=== PATIENT | female | born 1935 | race Caucasian/White ===

== ENCOUNTER 2018-03-11 01:12 | Inpatient (IN) | payer OTHER, MEDICARE ==
[~2018-03-11] VITALS: Ht 152.4 cm; Wt 54.0 kg
[~2018-03-11 01:12] MED LIST: ASPIRIN81 M4 PO; BYSTOLIC5 M1 PO; LIPITOR20 M2 PO; LISINOPRIL20 M1 PO; MAGNESIUM400 M1 PO; MULTIVITAMINS1 EAC9 PO; NORVASC5 M1 PO; WELLBUTRIN SR150 M1 PO
--- NOTE | 2018-03-11 09:36 | Admission Core Measures ---
Acute Coronary Syndrome (CM) ACS Core Measures Acute Coronary Syndrome Diagnosis No Congestive Heart Failure (NEW) CHF Core Measures Congestive Heart Failure Diagnosis No Cerebrovascular Accident CVA Core Measures CVA/TIA Diagnosis No Venous Thromboembolism VTE Core [place] (View Protocol) VTE Risk Factors Surgery No Mechanical VTE Prophylaxis d/t N/A MechProphylax Ordered No VTE Pharm Prophylaxis d/t NA PharmProphylax ordered Problem List As ranked by this Provider includes Assessment & Plan 1. Unilateral primary osteoarthritis, right knee HOME MEDS Home Med List Amlodipine Besylate (Norvasc) 5 MG TABLET 1 TAB PO DAILY HTN (Reported) Aspirin (Aspirin*) 81 MG TAB.CHEW 1 TAB PO DAILY CARDIAC (Reported) Atorvastatin Calcium (Lipitor) 20 MG TABLET 1 TAB PO DAILY cholesterol ( Reported) Bupropion HCl (Wellbutrin Sr) 150 MG TABLET.ER 1 TAB PO DAILY SMOKING CESSATION (Reported) Lisinopril 20 MG TABLET 1 TAB PO DAILY htn (Reported) Magnesium Oxide (Magnesium) 400 MG CAPSULE 1 CAP PO DAILY SUPPLEMENT ( Reported) Multiple Vitamin (Multivitamins) 1 EACH TABLET 1 TAB PO DAILY SUPPLEMENT ( Reported) Nebivolol HCl (Bystolic) 5 MG TABLET 1 TAB PO DAILY cardiac (Reported)
--- NOTE | 2018-03-11 09:37 | Surg Short-stay <48hrs Dis Sum ---
Visit Information Visit Dates Admission Date: 03/11/18 Discharge Date: 03/13/18 Surgical Short Stay DC Summary Admission Diagnosis: Right knee OA Final Diagnosis: JAKE s/p R TKA Procedure(s): Right total knee arthroplasty Summary/Significant Findings: Patient was admitted to the hospital for an elective right total knee replacement. The procedure was tolerated well and patient was transferred to a general surgical floor. Diet was advanced and tolerated. The patient was evaluated and treated by physical therapy. At the time of hospital discharge, vital signs were stable, neurovascular status was intact and pain was controlled with the use of oral pain medications. Condition at Discharge: Stable Discharge Disposition: home health services Discharge instructions provided to patient/family: Yes Post discharge follow-up plan: [address] Olivo Copies to: Singh Olivo MD
--- NOTE | 2018-03-11 09:40 | Patient Discharge Instructions ---
Discharge Instructions General Discharge Information You were seen/treated for: Right knee osteoarthritis You had these procedures: Right total knee arthroplasty Watch for these problems: Increasing pain despite the use of pain medication Increasing redness, warmth or swelling Drainage of any type from incision Inability to bear weight on operative leg Persistent nausea and vomiting Fever greater than 101.5 degrees Do not soak the wound: Yes Daily wet to dry dressings: No No bath, but you may shower: Yes Other wound care: Please keep wound clean and dry. No ointments or lotions of any type on or near incision at any time. No exceptions. Your dressing will be changed by your nurse on the second day after your surgery. Daily dry dressing changes are recommended each day thereafter. Do not soak your wound in a bath or pool at any time until otherwise indicated by your surgeon. You may shower, please dry wound immediately after shower with a clean towel. Special Instructions: Aspirin: You are taking this medication to help prevent blood clot formation. Please take with food to protect your stomach lining. Please take as directed. Constipation: Pain medication can cause constipation. Your surgeon has recommended that you take Colace and miralax each day. You may discontinue this medication if you develop loose stool or diarrhea. Diet Continue normal diet: Yes Activity Full Activity/No Limits: No Activity Self Limited: Yes Activity Limited to: Weight bear as tolerated (with rolling walker as needed) Acute Coronary Syndrome Inclusion Criteria At DC or during hospital stay patient has or had the following: ACS DIAGNOSIS No Discharge Core Measures Meds if any: Prescribed or Continued at Discharge Meds if any: NOT Prescribed or Continued at Discharge Congestive Heart Failure Inclusion Criteria At DC or during hospital stay patient has or had the following: CHF DIAGNOSIS No Discharge Core Measures Meds if any: Prescribed or Continued at Discharge Meds if any: NOT Prescribed or Continued at Discharge Cerebrovascular accident Inclusion Criteria At DC or during hospital stay patient has or had the following: CVA/TIA Diagnosis No Discharge Core Measures Meds if any: Prescribed or Continued at Discharge Meds if any: NOT Prescribed or Continued at Discharge Venous thromboembolism Inclusion Criteria VTE Diagnosis No VTE Type NONE VTE Confirmed by (Test) NONE Discharge Core Measures - Per Current guidelines, there needs to be overlap - treatment for the first 5 days of Warfarin therapy. - If discharged on Warfarin prior to 5 days of - overlap therapy, the patient will need to be - assessed for post discharge needs including - *Post discharge parental anticoagulation - *Warfarin and/or parental anticoagulation education - *Follow up date to check INR post discharge At least 5 days overlap therapy as Inpatient No Meds if any: Prescribed or Continued at Discharge Note: Overlap Therapy is Warfarin and Anticoagulant Meds if any: NOT Prescribed or Continued at Discharge
[2018-03-11] MEDS ORDERED: DILAUDID2 M1 PO (10:52)
[2018-03-11] MEDS ORDERED: OMEPRAZOLE20 M3 PO (10:52)
[2018-03-11] MEDS ORDERED: COLACE100 M1 PO (10:52)
[2018-03-11] MEDS ORDERED: ASPIRIN EC81 M1 PO (10:52)
[2018-03-11] MEDS ORDERED: MIRALAX17 G1 PO (10:52)
--- NOTE | 2018-03-11 14:36 | Operative Report ---
Operative/Inv Procedure Report Surgery Date: 03/11/18 Name of Procedure: Right total knee replacement Pre-Operative Diagnosis: Primary knee DJD Post-Operative Diagnosis: Same Estimated Blood Loss: 50ml to 100ml Surgeon/Fuse Maker: Geovani VIEYRA,Singh Shrestha Anesthesia: block Operative/Procedure Note Note: Description of Procedure: The patient was taken to the operating room and positively identified. After induction of spinal anesthesia and administration of appropriate pre-operative antibiotics, the patient was positioned supine on the operating room table and all bony prominences were well padded. A well-padded pneumatic tourniquet was placed on the right upper thigh. After performing a surgical timeout, the right lower extremity was prepped and draped in the usual sterile fashion. After exsanguination with Esmarch the tourniquet was inflated to 250mm of mercury. A standard medial parapatellar approach was made to the knee. This was carried down through skin and subcutaneous tissue to the level of the fascia. Meticulous hemostasis was maintained with Bovie electrocautery. The extensor mechanism and patellar retinaculum were opened sharply and the patella was everted. The infrapatellar fat was resected in order to improve exposure. Osteophytes were trimmed from the patella and femoral condyles and the patella was re-everted and tucked laterally. A medial release was performed and the cruciate ligaments were resected. The tibia was then subluxed anteriorly. Utilizing the appropriate extra-medullary guide, the proximal tibia was trimmed perpendicular to the long axis of the tibial shaft. Attention was then turned to the femur. After opening the medullary canal, the distal femoral cut was made in 6 degrees of valgus utilizing the appropriate intra-medullary guide. The extension gap was checked and found to be appropriate. The femur was then sized and the remainder of the femoral cuts were made with a size #2 4-in-1 femoral cutting guide. The flexion gap was checked and found to be symmetric and appropriate. The knee was then trialed with a size #2 CR femoral component, a size #2 tibial component and a size 13 mm CS polyethylene insert. The patella was trimmed to accept an A 29 patella. This yielded excellent range of motion, stability and patellar tracking. All trial components were removed and the knee was copiously irrigated with sterile saline. All components were cemented into place with Nelda Simplex cement. All the components were of the Nelda Triathlon knee system of the above stated sizes. The knee was again irrigated after cementation. The extensor mechanism and patellar retinaculum were repaired using interrupted #1 vicryl suture. The skin was re-approximated with 2-0 vicryl and closed with shane. A sterile dressing was applied, the tourniquet was deflated, the patient was awakened and taken to the recovery room in satisfactory condition.
--- NOTE | 2018-03-11 15:37 | PN- Orthopedic ---
Subjective Subjective: POC feeling well, still in pacu awaiting bed on floor. no n/v, no cp/sob. some rle discomfort, controlled w block. some persistent numbness bl le. due to void postop Objective Vital Signs and I&Os Intake & Output 03/11 1600 03/11 0800 03/11 0000 03/10 1600 03/10 0803/10 0000 Intake Total Output Total Balance Patient 118 lb Weight Physical Exam: gen- nad card-s1s2 rrr pulm- ctab abd- soft nt ext- rle dressed in maru, ice in place. palp pt bl, feet warm. gross sensation intact/equal bl. +dorsi/flexion bl. calves soft nt bl, alps on. Assessment/Plan Assessment/Plan A- POD0 sp R TKR, stable with some postop pain, sp recent orif R hip (january 2018) . P- prn pain meds oob, wbat, pt asa 82 bid dc planning- desires [facility] dc Core Measures Venous Thromboembolism VTE Risk Factors Surgery No Mechanical VTE Prophylaxis d/t N/A MechProphylax Ordered No VTE Pharm Prophylaxis d/t NA PharmProphylax ordered
[2018-03-11 17:19] VITALS: BP 140/60
[2018-03-11 19:15] VITALS: BP 142/60
[2018-03-11 21:30] VITALS: BP 104/58
[2018-03-11 23:03] VITALS: BP 110/60
[2018-03-12 01:56] VITALS: BP 122/68
[2018-03-12 06:29] VITALS: BP 110/58
--- NOTE | 2018-03-12 07:32 | PN- Orthopedic ---
Subjective Subjective: Patient resting comfortably in bed. Head no events overnight. States that she did have some increase knee pain last night requiring IV morphine. She ambulated multiple times yesterday and this morning. She is tolerating a regular diet. Patient says she does have some paresthesias in her right lower extremity but nothing beyond her baseline. Objective Vital Signs and I&Os Vital Signs Date Time Temp Pulse Resp B/P B/P Pulse O2 O2 Flow FiO2 Mean Ox Delivery Rate 03/12 0629 97.8 72 20 110/58 97 03/12 0156 97.8 64 20 122/68 95 03/11 2303 97.8 71 16 110/60 94 Room Air 03/11 2130 97.4 77 20 104/58 96 Room Air 03/11 1915 98.6 78 16 142/60 96 Room Air 03/11 1719 96.0 70 18 140/60 96 Room Air Room Air Intake & Output 03/12 0803/12 0000 03/11 1600 03/11 0803/11 0000 03/10 1600 Intake Total 660 Output Total 750 Balance -90 Intake, IV 300 Intake, Oral 360 Output, Urine 750 Patient 119 lb 118 lb Weight Physical Exam: General- NAD Resperations- clear bialaterlly Cardiac-regular rate and rhythm Abdomen-soft nontender with positive bowel sounds Extremities-dressing is clean and dry, thigh is soft with no erythema, minimal tenderness around incision. Calves are soft bilaterally and non-tenderness. Distal sensory and motor function is intact. Current Medications: Current Medications Sig/Joe Start time Last Medication Dose Route Stop Time Status Admin Acetaminophen 1,000 MG Q6H 03/12 0200 AC 03/12 IV 03/12 1401 0119 Acetaminophen 1,000 MG Q6 03/11 1200 DC 03/11 IV 03/12 0601 1943 Acetaminophen 0 .STK-MED ONE 03/11 1024 DC PO Amlodipine Besylate 5 MG DAILY 03/12 900 AC PO Aspirin Buffered 81 MG BID 03/11 2100 AC 03/11 PO 2009 Atorvastatin Calcium 20 MG DAILY 03/12 900 AC PO Bupropion HCl 150 MG DAILY 03/12 900 AC PO Cefazolin Sodium 2 GM IQ8 03/12 0000 CAN N/A 1 UNIT IV 03/12 08 Dextrose/Sodium 1,000 ML .[id number] 03/11 1645 DC 03/12 Chloride IV 0439 Docusate Sodium 100 MG BID 03/11 2100 AC 03/11 PO 2009 Hydromorphone HCl 2 MG Q4P PRN 03/11 1645 AC 03/11 PO 2149 Hydromorphone HCl 4 MG Q4P PRN 03/11 1645 AC 03/12 PO 0344 Hydromorphone HCl 0 .STK-MED ONE 03/11 1510 DC .ROUTE Ketorolac 15 MG Q8H PRN 03/12 0730 UNVr Tromethamine IV Ketorolac 15 MG Q6-PRN PRN 03/11 2330 AC Tromethamine IV Lisinopril 20 MG DAILY 03/12 0900 AC PO Magnesium Oxide 400 MG DAILY 03/12 0900 AC PO Midazolam HCl 0 .STK-MED ONE 03/11 1030 DC .ROUTE Morphine Sulfate 2 MG Q3P PRN 03/11 1645 AC 03/12 IV 0612 Multivitamins 1 TAB DAILY 03/12 0900 AC Therapeutic PO Nebivolol 5 MG DAILY 03/12 0900 AC PO Omeprazole 20 MG DAILY AC 03/12 0700 AC 03/12 PO 0613 Ondansetron HCl 4 MG Q6P PRN 03/11 1645 AC IV Oxycodone HCl 0 .STK-MED ONE 03/11 1024 DC PO Oxycodone HCl 10 MG ONCE 03/11 0000 DC PO 03/11 2359 Polyethylene Glycol 17 GM DAILY 03/12 0900 AC PO Tranexamic Acid 0 .STK-MED ONE 03/11 1153 DC IV Vancomycin HCl 1,000 MG ONCE ONE 03/12 1200 AC Sodium Chloride 250 ML IV 03/12 1259 Vancomycin HCl 1,000 MG Q12 03/11 2100 CAN Sodium Chloride 250 ML IV 03/11 2159 Results Last 48 Hours of Labs: Laboratory Tests 03/12 0636 Chemistry Sodium Pending Potassium Pending Chloride Pending Carbon Dioxide Pending Anion Gap Pending BUN Pending Creatinine Pending BUN/Creatinine Ratio Pending Hematology CBC w Diff Pending WBC Pending RBC Pending Hgb Pending Hct Pending MCV Pending MCH Pending MCHC Pending RDW Pending Plt Count Pending MPV Pending Assessment/Plan Assessment/Plan 82-year-old female with a history of hypertension, hyperlipidemia, and ischemic stroke about 7 years ago now here status post right total knee arthroplasty postop day 1. Stable. Patient was seen and examined by Dr. Olivo this morning. pain managementwill add IV Toradol as needed PT- WBAT with rolling walker DVT PPX- ASA 81 mg BID DC IVF FU AM labs Regular diet Regular home medications Encourage IS DC planning Dressing change Post-op day2 Core Measures Venous Thromboembolism VTE Risk Factors Surgery No Mechanical VTE Prophylaxis d/t N/A MechProphylax Ordered No VTE Pharm Prophylaxis d/t NA PharmProphylax ordered
[2018-03-12 08:44] LABS: ABSOLUTE BASOPHIL COUNT 0 /CUMM (0.0-0.2); ABSOLUTE EOSINOPHIL COUNT 0 /CUMM (0.0-0.7); ABSOLUTE GRANULOCYTE CT 8.4 /CUMM (1.4-6.5); ABSOLUTE LYMPH COUNT 0.7 /CUMM (1.2-3.4); ABSOLUTE MONOCYTE COUNT 0.6 /CUMM (0.10-0.60); BASOPHIL % 0 % (0.0-2.0); EOSINOPHIL % 0 % (0-5); HEMATOCRIT 26.8 % (37-47); MEAN CORPUSCULAR HGB 30.3 PG (27.0-31.0); MEAN CORPUSCULAR HGB CONC 33.4 G/DL (33.0-37.0); MEAN CORPUSCULAR VOLUME 90.8 FL (81.0-99.0); MEAN PLATELET VOLUME 11.1 FL (7.4-10.4); PLATELET COUNT 183 /CUMM (130-400); RBC DISTRIBUTION WIDTH 14.3 % (11.5-14.5); RED BLOOD CELL CT 2.95 /CUMM (4.20-5.40); WHITE BLOOD CELL COUNT 9.7 /CUMM (4.8-10.8)
[2018-03-12 09:23] LABS: GRANULOCYTE % 86.7 % (42.2-75.2)
[2018-03-12 14:09] VITALS: BP 130/60
[2018-03-12 22:09] VITALS: BP 140/70
[2018-03-13 01:51] VITALS: BP 128/60
[2018-03-13 06:42] VITALS: BP 122/60
--- NOTE | 2018-03-13 07:40 | PN- Orthopedic ---
Subjective Subjective: Patient comfortable without complaints prefers oxycodone over dilaudid for pain control Review of Systems Constitutional: Denies: chills, malaise, weakness. Cardiovascular: Denies: no symptoms. Respiratory: Denies: no symptoms. Gastrointestinal: Denies: abdominal pain, diarrhea, nausea, vomiting. Genitourinary: Denies: no symptoms. Musculoskeletal: Reports: joint pain. Hematologic/Endocrine: Denies: bruising, bleeding. Objective Vital Signs and I&Os Vital Signs Date Time Temp Pulse Resp B/P B/P Pulse O2 O2 Flow FiO2 Mean Ox Delivery Rate 03/13 0642 98.4 77 20 122/60 95 03/13 0151 98.2 79 20 128/60 95 03/12 2209 98.0 73 20 140/70 96 Room Air 03/12 1600 Room Air 03/12 1409 97.7 85 20 130/60 94 Room Air 03/12 1234 Room Air Room Air 03/12 0956 73 122/60 03/12 0956 73 122/60 03/12 0955 73 122/60 Intake & Output 03/13 0000 03/12 1600 03/12 0803/12 0000 03/11 1600 Intake Total 360 1270 960 660 Output Total 500 750 Balance 360 1270 460 -90 Intake, IV 550 600 300 Intake, Oral 360 720 360 360 Number 0 Bowel Movements Output, Urine 500 750 Patient 119 lb Weight Physical Exam: patient alert and oriented, pain controlled chest- CTA symmetric Heart-RRR without MRG Abd -rounded without distention NTTP right knee- dressings dry, no drainage, knee with edema PROM 3-110 calves soft bilaterally distal pusles intact Current Medications: Current Medications Sig/Joe Start time Last Medication Dose Route Stop Time Status Admin Acetaminophen 1,000 MG Q6H 03/12 0200 DC 03/12 IV 03/12 1401 1522 Amlodipine Besylate 5 MG DAILY 03/12 900 AC 03/12 PO 09 Aspirin Buffered 81 MG BID 03/11 2100 AC 03/12 PO 2110 Atorvastatin Calcium 20 MG DAILY 03/12 900 AC 03/12 PO 09 Bupropion HCl 150 MG DAILY 03/12 900 AC 03/12 PO 0955 Docusate Sodium 100 MG BID 03/11 2100 AC 03/12 PO 211 Hydromorphone HCl 2 MG Q4P PRN 03/11 1645 DC 03/11 PO 2149 Hydromorphone HCl 4 MG Q4P PRN 03/11 1645 DC 03/13 PO 0313 Ketorolac 15 MG Q8H PRN 03/12 0730 DC 03/12 Tromethamine IV 2111 Ketorolac 15 MG Q6-PRN PRN 03/11 2330 AC 03/13 Tromethamine IV 0540 Lisinopril 20 MG DAILY 03/12 0900 AC 03/12 PO 0956 Magnesium Oxide 400 MG DAILY 03/12 0900 AC 03/12 PO 0954 Morphine Sulfate 2 MG Q3P PRN 03/11 1645 AC 03/12 IV 0612 Multivitamins 1 TAB DAILY 03/12 09 AC 03/12 Therapeutic PO 0955 Nebivolol 5 MG DAILY 03/12 0900 AC 03/12 PO 0956 Omeprazole 20 MG DAILY AC 03/12 0700 AC 03/13 PO 0540 Ondansetron HCl 4 MG Q6P PRN 03/11 1645 AC IV Oxycodone HCl 5 MG Q4P PRN 03/13 0745 AC PO Oxycodone HCl 10 MG Q4P PRN 03/13 0745 DC PO Patient Medication 1 ED ONE ONE 03/12 1530 DC 03/12 Teaching ED 03/12 1531 1530 Polyethylene Glycol 17 GM DAILY 03/12 09 AC 03/12 PO 0958 Vancomycin HCl 1,000 MG ONCE ONE 03/12 1200 DC 03/12 Sodium Chloride 250 ML IV 03/12 1259 1224 Results Last 48 Hours of Labs: Laboratory Tests 03/12 0636 Chemistry Sodium (137 - 145 mmol/L) 134 L Potassium (3.5 - 5.1 mmol/L) 4.5 Chloride (98 - 107 mmol/L) 102 Carbon Dioxide (22 - 30 mmol/L) 26 Anion Gap (5 - 16) 6 BUN (7 - 17 mg/dL) 11 Creatinine (0.5 - 1.0 mg/dL) 0.6 Estimated GFR (>60 ml/min) > 60 BUN/Creatinine Ratio (7 - 25 %) 18.3 Hematology CBC w Diff NO MAN DIFF REQ WBC (4.8 - 10.8 /CUMM) 9.7 RBC (4.20 - 5.40 /CUMM) 2.95 L Hgb (12.0 - 16.0 G/DL) 8.9 L Hct (37 - 47 %) 26.8 L MCV (81.0 - 99.0 FL) 90.8 MCH (27.0 - 31.0 PG) 30.3 MCHC (33.0 - 37.0 G/DL) 33.4 RDW (11.5 - 14.5 %) 14.3 Plt Count (130 - 400 /CUMM) 183 MPV (7.4 - 10.4 FL) 11.1 H Gran % (42.2 - 75.2 %) 86.7 H Lymphocytes % (20.5 - 51.1 %) 7.5 L Monocytes % (1.7 - 9.3 %) 5.8 Eosinophils % (0 - 5 %) 0 Basophils % (0.0 - 2.0 %) 0 Absolute Granulocytes (1.4 - 6.5 /CUMM) 8.4 H Absolute Lymphocytes (1.2 - 3.4 /CUMM) 0.7 L Absolute Monocytes (0.10 - 0.60 /CUMM) 0.6 Absolute Eosinophils (0.0 - 0.7 /CUMM) 0 Absolute Basophils (0.0 - 0.2 /CUMM) 0 Assessment/Plan Assessment/Plan POD right TKA awaiting labs, if stable plan to D/C to home with services change dilaudid RX to oxycodone per patient Core Measures Venous Thromboembolism VTE Risk Factors Surgery No Mechanical VTE Prophylaxis d/t N/A MechProphylax Ordered No VTE Pharm Prophylaxis d/t NA PharmProphylax ordered
[2018-03-13] MEDS ORDERED: OXYCODONE HCL5 M1 PO (07:43)
[2018-03-13 08:53] VITALS: BP 110/58
[2018-03-13 09:38] LABS: ABSOLUTE BASOPHIL COUNT 0 /CUMM (0.0-0.2); ABSOLUTE EOSINOPHIL COUNT 0.1 /CUMM (0.0-0.7); ABSOLUTE GRANULOCYTE CT 5.7 /CUMM (1.4-6.5); ABSOLUTE LYMPH COUNT 1.5 /CUMM (1.2-3.4); ABSOLUTE MONOCYTE COUNT 0.7 /CUMM (0.10-0.60); BASOPHIL % 0.4 % (0.0-2.0); EOSINOPHIL % 0.9 % (0-5); GRANULOCYTE % 71.1 % (42.2-75.2); HEMATOCRIT 26.5 % (37-47); MEAN CORPUSCULAR HGB 29.9 PG (27.0-31.0); MEAN CORPUSCULAR HGB CONC 32.8 G/DL (33.0-37.0); MEAN CORPUSCULAR VOLUME 91.2 FL (81.0-99.0); MEAN PLATELET VOLUME 12.3 FL (7.4-10.4); PLATELET COUNT 163 /CUMM (130-400); RBC DISTRIBUTION WIDTH 14.6 % (11.5-14.5); RED BLOOD CELL CT 2.91 /CUMM (4.20-5.40)
[2018-03-13] MEDS ORDERED: ROXICODONE5 M1 PO (10:07)
[2018-03-13] MEDS ORDERED: TYLENOL EXTRA500 M2 PO (10:07)
== END 2018-03-13 12:00 | disposition home health service (06) | DRG 470 ==
LOC: SDA 01:12 → ENRESERV 15:44 → ENTRNSPT 16:31 → 2NA 16:38 → EDTRNSPTSTS 16:39 → EDTRNSPT 16:39 → CMPTRNSPT 16:55 → ENPENDDIS 03-13 08:04 → ENTRNSPT 03-13 11:33 → EDTRNSPTSTS 03-13 12:00 → EDTRNSPT 03-13 12:00 → 2NA 03-13 12:00 → CMPTRNSPT 03-13 12:01
PROVIDERS: Physician Assistant Surgical
PROC: 0SRC0J9 Replacement of Right Knee Joint with Synthetic Substitute, Cemented, Open Approach (ICD-10-PCS; principal; 2018-03-11)
PROC: 3E0T3BZ Introduction of Anesthetic Agent into Peripheral Nerves and Plexi, Percutaneous Approach (ICD-10-PCS; 2018-03-11)
DX: M17.11 Unilateral primary osteoarthritis, right knee (principal); I10 Essential (primary) hypertension; K21.9 Gastro-esophageal reflux disease without esophagitis; E78.5 Hyperlipidemia, unspecified; Z86.73 Personal history of transient ischemic attack (TIA), and cerebral infarction without residual deficits; Z87.81 Personal history of (healed) traumatic fracture; Z91.040 Latex allergy status; Z88.0 Allergy status to penicillin; Z91.048 Other nonmedicinal substance allergy status
CPT/HCPCS: 2NAP; 36592; 82436; 97110-GO; 97116-GO; 97161-GP; C1713; J0131; J3370; J3490; J7040; J7042